=== PATIENT | male | born 1980 | race Caucasian/White ===

== ENCOUNTER 2024-11-09 22:21 | Emergency (ER) | payer SELFPAY ==
[~2024-11-09] VITALS: Ht 172.7 cm; Wt 87.0 kg
[2024-11-09 22:23] VITALS: TEMP 36.3; O2SAT 98
[2024-11-09 23:13] LABS: BASOPHILS % 0.2 % (0.0-2.0); EOSINOPHILS % 1.1 % (0.0-5.0); HEMATOCRIT. 45.2 % (42.0-52.0); HEMOGLOBIN. 14.9 g/dL (14.0-18.0); LYMPHOCYTES % 41.4 % (20.0-50.0); MEAN PLATELET VOLUME 8.9 fl (7.4-10.4); MONOCYTES % 7.1 % (2.0-8.0); NEUTROPHILS % 50.2 % (40.0-76.0); PLATELET 205 x1000/uL (130-400); RED BLOOD CELL COUNT 5.14 mill/uL (4.7-6.1); RED CELL DISTRIBUTION WIDTH 13.9 % (11.6-14.6); WHITE BLOOD COUNT 14.5 x1000/uL (4.5-11.0)
[2024-11-09 23:19] LABS: CHLORIDE 98 mEq/L (98-107); POTASSIUM 3.4 mEq/L (3.5-5.1); SODIUM 133 mEq/L (136-145)
[2024-11-09 23:20] LABS: CALCIUM 8.8 mg/dL (8.7-10.4); CARBON DIOXIDE 16 mEq/L (21-32)
[2024-11-09 23:25] LABS: CREATININE 0.9 mg/dL (0.6-1.3); ETHANOL BLOOD 147 mg/dL (<10); GLUCOSE 242 mg/dL (70-105); UREA NITROGEN BLOOD 9 mg/dL (9-23)
[2024-11-09] MEDS: ONDANSETRON 4MG ODT PO ONE (23:30)
[2024-11-09 23:58] LABS: CLARITY URINE CLEAR (CLEAR); COLOR URINE YELLOW (YELLOW); GLUCOSE URINE 3+ (NEGATIVE); KETONES URINE TRACE (NEGATIVE); LEUKOCYTE ESTERASE URINE NEGATIVE (NEGATIVE); NITRITE URINE NEGATIVE (NEGATIVE); OCCULT BLOOD URINE NEGATIVE (NEGATIVE); PH URINE 5.5 (4.5-8.0); PROTEIN URINE TRACE (NEGATIVE); SPECIFIC GRAVITY URINE 1.013 (1.005-1.030); UROBILINOGEN URINE 0.2 E.U./dL (0.2-1.0)
[2024-11-10 00:05] LABS: *AMPHETAMINES SCREEN URINE NEGATIVE (NEGATIVE); *BENZODIAZEPINES SCREEN URINE NEGATIVE (NEGATIVE)
[2024-11-10 00:06] LABS: *BARBITURATES SCREEN URINE NEGATIVE (NEGATIVE); *COCAINE SCREEN URINE PRESUMPTIVE POSITIVE (NEGATIVE); CANNABINOID URINE SCREEN NEGATIVE (NEGATIVE); ECSTASY MDMA SCREEN URINE NEGATIVE (NEGATIVE); METHADONE URINE SCREEN NEGATIVE (NEGATIVE); OPIATES URINE SCREEN NEGATIVE (NEGATIVE); PHENCYCLIDINE URINE SCREEN NEGATIVE (NEGATIVE)
[2024-11-10] MEDS ORDERED: NALO4SPR BOTHNSTRLS (02:52)
[2024-11-10 03:18] VITALS: BP 100/64; PULSE 82; RESP 18; O2SAT 100
[2024-11-10 04:04] LABS: SQUAMOUS EPITHELIAL CELL URINE FEW /lpf (RARE/1+)
[2024-11-10 04:05] LABS: RBC URINE 0-2 /hpf (0-2)
[2024-11-10 04:07] LABS: BACTERIA URINE NONE SEEN
== END 2024-11-10 03:19 | disposition home or self-care (01) ==
LOC: ER 22:21
DX: F10.129 Alcohol abuse with intoxication, unspecified (principal); T40.2X1A Poisoning by other opioids, accidental (unintentional), initial encounter; E11.9 Type 2 diabetes mellitus without complications; R51.9 Headache, unspecified; F17.200 Nicotine dependence, unspecified, uncomplicated; I10 Essential (primary) hypertension; Y90.6 Blood alcohol level of 120-199 mg/100 ml; Y92.480 Sidewalk as the place of occurrence of the external cause; Z79.899 Other long term (current) drug therapy
CPT/HCPCS: 80305; 80048; 81003; 80320; 85025; 36415; 71045; 93005; 99285; 70450; Q0162; 99284; A4606; G0480